=== PATIENT | male | born 1995 | race African-American/Black ===

== ENCOUNTER 2017-07-11 22:45 | Emergency (ER) | payer MEDICAID, MEDICARE ==
[~2017-07-11] VITALS: Ht 175.3 cm; Wt 54.0 kg
[~2017-07-11 22:45] MED LIST: ABILIFY; CYMBALTA; DEPAKOTE; DULCOLAX; GABAPENTIN
[2017-07-12] MEDS ORDERED: ONDANSETRON 4MG ODT PO STA (00:40)
[2017-07-12] MEDS ORDERED: ACETAMINOPHEN WITH CODEINE 300/30MG TABLET PO ONE (00:45)
[2017-07-12 01:04] VITALS: BP 112/58
[2017-07-12 01:10] LABS: BASOPHILS % 0.6 % (0.0-2.0); EOSINOPHILS % 2.6 % (0.0-5.0); HEMATOCRIT. 36.8 % (42.0-52.0); HEMOGLOBIN. 12.3 g/dL (14.0-18.0); LYMPHOCYTES % 35.5 % (20.0-50.0); MEAN CORPUSCULAR HEMOGLOBIN 28.6 pg (28.0-32.0); MEAN PLATELET VOLUME 7.4 fl (7.4-10.4); MONOCYTES % 7.6 % (2.0-8.0); NEUTROPHILS % 53.7 % (40.0-76.0); PLATELET 247 x1000/uL (130-400); RED BLOOD CELL COUNT 4.32 mill/uL (4.7-6.1); RED CELL DISTRIBUTION WIDTH 13.5 % (11.6-14.6)
[2017-07-12 01:12] LABS: PROTHROMBIN TIME 10.8 sec (9.4-11.6)
[2017-07-12 01:13] LABS: CHLORIDE 104 mEq/L (98-107)
[2017-07-12 01:22] LABS: CARBON DIOXIDE 29 mEq/L (21-32)
== END 2017-07-12 01:50 | disposition home or self-care (01) ==
LOC: ER 22:55
DX: M79.671 Pain in right foot (principal); R10.30 Lower abdominal pain, unspecified; J45.909 Unspecified asthma, uncomplicated; M19.90 Unspecified osteoarthritis, unspecified site; F31.9 Bipolar disorder, unspecified; F12.10 Cannabis abuse, uncomplicated; F17.200 Nicotine dependence, unspecified, uncomplicated; Z88.0 Allergy status to penicillin
CPT/HCPCS: 36415; 73620; 80053; 85025; 85610; 99285; Q0162